=== PATIENT | female | born 1990 | race Two or more races ===

== ENCOUNTER 2023-12-07 09:32 | Day surgery (SDC) | payer OTHER ==
[2023-11-27 11:17] LABS: PH,URINE 5.5 (5.0-8.0); URINE APPEARANCE Clear; URINE BILIRRUBIN Negative (NEGATIVE); URINE BLOOD Negative; URINE COLOR Yellow; URINE GLUCOSE Negative (NEGATIVE); URINE LEUKOCYTE Negative; URINE NITRATE Negative; URINE PROTEIN Negative (NEGATIVE); URINE UROBILINOGEN 0.2 E.U./dl
[2023-11-27 11:21] LABS: URINE BACTERIA 1554.6 uL (0.0-1933); URINE EPITHELIAL CELLS 26.2 uL (0.0-38.8); URINE RBC 62.2 uL (0.0-20.8)
[2023-11-27 11:32] LABS: HEMATOCRIT 39.4 % (36.0-45.00); HEMOGLOBIN 13.6 g/dL (12.0-15.00); MEAN CELL VOLUME 89.3 fL (80.00-100.00); MEAN CORPUSCULAR HEMOGLOBIN 30.8 pg (27.00-32.0); MEAN CORPUSCULAR HGB CONC 34.5 g/dl (32.0-36.0); PLATELET COUNT 405 K/uL (150-450); RED BLOOD COUNT 4.41 M/uL (4.00-6.00); RED CELL DISTRIBUTION WIDTH 13.7 % (11.5-14.5)
[2023-11-27 11:55] LABS: INR 0.98; PARTIAL THROMBOPLASTIN TIME 30.2 SECONDS (22.0-34.0); PROTHROMBIN TIME 10.3 SECONDS (9.0-11.5)
[2023-11-27 12:13] LABS: ALBUMIN 3.4 gm/dL (3.4-5.0); BILIRUBIN TOTAL 0.43 mg/dL (0.3-1.2); CALCIUM 8.7 mg/dL (8.5-10.1); CREATININE SERUM 0.65 mg/dL (0.55-1.02); GFR 103.72; GLOBULINA 3.6 G/DL (2.4-3.5); POTASSIUM 3.96 mEq/L (3.5-5.1); TSH 0.591 uIU/mL (0.358-3.74)
[~2023-12-07 09:32] MED LIST: AMLODIPINE-OLM1 EAC2; AVAPRO300 MG
[2023-12-07] MEDS ORDERED: CEFAZOLIN SODIUM 1,000 MG VIAL ONE (11:44)
[2023-12-07] MEDS ORDERED: POVIDONE-IODINE 118 ML BOTT TOP ONE (12:30)
[2023-12-07] MEDS ORDERED: CHLORHEXIDINE GLUCONATE 120 ML BOTTLE TOP ONE (12:35)
[2023-12-07] MEDS ORDERED: MORPHINE SULFATE 4 MG/ML VIAL IV PRN (14:15)
[2023-12-07] MEDS ORDERED: PROMETHAZINE HCL 50 MG/ML AMPUL IM ONE (14:15)
[2023-12-07] MEDS ORDERED: NAPR500T14 PO (14:20)
[2023-12-07] MEDS ORDERED: MORGIDOX100 MG PO (14:20)
== END 2023-12-07 17:40 | disposition home or self-care (01) ==
LOC: CIR.AMB 09:32
PROVIDERS: ATTEND Obstetrics & Gynecology
DX: D25.0 Submucous leiomyoma of uterus (principal); N84.0 Polyp of corpus uteri; Z88.8 Allergy status to other drugs, medicaments and biological substances; Z91.013 Allergy to seafood; I10 Essential (primary) hypertension; K50.90 Crohn's disease, unspecified, without complications